=== PATIENT | female | born 1985 | race Caucasian/White ===

== ENCOUNTER 2016-10-25 08:27 | Emergency (ER) ==
[2016-10-25] MEDS ORDERED: ZOFRAN ODT PO ONE (08:52)
[2016-10-25] MEDS ORDERED: SODIUM CHLORIDE 0.9% INJ ONE (10:29)
[2016-10-25] MEDS ORDERED: NS 1,000 ML IV ONE (10:29)
[2016-10-25] MEDS ORDERED: PHENERGAN IV ONE (10:29)
--- NOTE | 2016-10-25 10:31 | PROVIDER DOCUMENTATION ---
HPI-General Adult - General Chief Complaint: General Adult Stated Complaint: FLU LIKE SX Time Seen by Provider: 10/25/16 08:52 Source: patient Allergies/Adverse Reactions: Patient Allergies Allergy/AdvReac Type Severity Reaction Status Date / Time Latex, Natural Rubber Allergy Mild HIVES Verified 07/04/16 13:14 Penicillins Allergy Mild HIVES Verified 07/04/16 13:14 Home Medications: Sertraline HCl [Zoloft] 200 mg PO DAILY 10/05/13 Folic Acid 1 mg PO DAILY 05/02/14 Methotrexate Sodium [Methotrexate] 1 tab PO DIRECTED 05/02/14 Pregabalin [Lyrica] 450 mg PO DAILY 05/02/14 Hydrocodone/Acetaminophen [Constantia 5-325 Tablet] 1 each PO BID 04/10/16 Etonogestrel [Nexplanon] 07/04/16 Levomefolate Calcium [Deplin] 1 tab PO DAILY 07/04/16 Meclizine [Antivert] 2 tab PO DAILY 07/04/16 Norethindrone Acetate [Aygestin] 1 tab PO DAILY 07/04/16 Omeprazole [Prilosec] 1 tab PO DAILY 07/04/16 Tizanidine HCl 1 tab PO BID 07/04/16 - History of Present Illness -Gen Adult Nature of Presenting Problems: Reports to er with cc of sorethroat x2 days with n,v,d. Reports was constipated before sunday. Takes pain medications. Hx of flesh eating ulcers. Reports feels dehydrated. Location of Pain/Injury: reports: mouth Quality of Pain: reports: aching Severity: reports: moderate Onset/Duration: reports: 2 days ago Timing: reports: still present Similar Symptoms Previously?: No Recently seen or treated by another doctor?: No Review of Systems - Adult - REVIEW OF SYSTEMS - ADULT Constitutional: denies: chills, fever, fatique Eyes: reports: no symptoms reported Ears, Nose, Mouth & Throat: reports: throat pain. denies: ear pain, sinus problem Cardiovascular: reports: no symptoms reported Respiratory: denies: cough, shortness of breath, wheezing Gastrointestinal: reports: diarrhea, nausea, poor appetite, vomiting. denies: abdominal pain, difficulty swallowing, frequent heartburn Genitourinary: reports: no symptoms reported Musculoskeletal: reports: no symptoms reported Integumentary: reports: no symptoms reported Neurological: reports: no symptoms reported Psychiatric: reports: no symptoms reported Endocrine: reports: no symptoms reported Hematologic/Lymphatic: reports: no symptoms reported Allergic/Immunologic: reports: no symptoms reported All Other Systems: Reviewed and Negative Past History - Adult - PAST MEDICAL HISTORY-ADULT Review of Records: reports: Nursing Assessment Review Major Childhood Illnesses: reports: denies history Cardiovascular: reports: denies history Respiratory: reports: denies history Gastrointestinal: reports: IBS Obstetrical/Gynecological: reports: ovarian cysts, other (PCOS) Genitourinary: reports: denies history Musculoskeletal: reports: denies history Neurological: reports: denies history Endocrine/Immune: reports: denies history Other Conditions: reports: denies history Additional History: Fibromyalgia - PRIOR SURGERIES/PROCEDURES Surgical/Procedure History: reports: other (breast reduction) - PRIOR HOSPITALIZATIONS Prior Hospitalizations: reports: none - IMMUNIZATION STATUS Childhood Immunizations: See Nurse Assessment Flu Vaccine: See Nurse Assessment - FAMILY HISTORY Family History: reviewed, not pertinent - SOCIAL HISTORY Smoking: denies Substance Use: none/never Physical Exam-General - PHYSICAL EXAM-ADULT Initial Vital Signs Reviewed: Yes - CONSTITUTIONAL General Appearance: appears well, alert, no apparent distress - EYES Eyes: PERRL/EOMI, pink conjunctivae - HEAD, EARS, NOSE, MOUTH & THROAT HENMT: normocephalic/atraumatic, normal ENT inspection, TMs normal, pharyngeal erythema (with white exudate). negative: moist mucous membranes - NECK Neck: non-tender, full range of motion, normal inspection - RESPIRATORY Respiratory: chest non-tender, lungs clear, normal breath sounds - CARDIOVASCULAR Cardiovascular: normal peripheral pulses, regular rate, rhythm, no edema - GASTROINTESTINAL (ABDOMEN) Abdominal Exam: normal bowel sounds, non tender, soft - LYMPHATIC Lymphatic: no adenopathy - MUSCULOSKELETAL Back Exam: normal inspection, no CVA tenderness, no vertebral tenderness Extremity: normal range of motion, non-tender, normal gait - SKIN Integumentary: normal color, normal turgor, warm/dry - NEUROLOGIC Neurologic: grossly normal, no motor/sensory deficits - PSYCHIATRIC Psych/Mental Status: normal mood/affect, normal thought content, normal thought process, oriented x 3 Progress - PLAN OF CARE/RESULTS Progress/Plan/Lab Results: Orders Category Date Time Status DIRECT STREP PL Stat Lab 10/25/16 08:47 Completed Flu [INFLUENZA SCREEN PL] Stat Lab 10/25/16 08:47 Completed Ondansetron Odt [Zofran Odt] Med 10/25/16 08:52 Discontinued 4 mg PO NOW ONE Vital Signs - 24 hr 10/25/16 08:47 Temperature 99.7 F H Pulse Rate 121 H Respiratory 18 Rate Blood Pressure 134/69 O2 Sat by Pulse 99 Oximetry Laboratory Tests 10/25/16 10/25/16 08:47 08:47 Influenza A (Rapid) NEGATIVE Influenza B (Rapid) NEGATIVE Group A Strep Rapid NEGATIVE Orders Category Date Time Status Saline Loc DIRECTED Care 10/25/16 10:29 Active Saline Loc NOW Care 10/25/16 10:29 Active NPO Diet 10/25/16 10:29 Active CHEST-PORTABLE [RAD] Stat Exams 10/25/16 11:44 Ordered RENAL STONE SEARCH [CT] Stat Exams 10/25/16 11:44 Ordered AMYLASE [CHEM] Stat Lab 10/25/16 10:45 Completed CBC WITH ELECTRONIC DIFF [HEME] Stat Lab 10/25/16 10:45 Completed COMPREHENSIVE METABOLIC PANEL [CHEM] Stat Lab 10/25/16 10:[address] Stat Lab 10/25/16 08:47 Completed Flu [INFLUENZA SCREEN PL] Stat Lab 10/25/16 08:47 Completed LIPASE [CHEM] Stat Lab 10/25/16 10:45 Completed MAGNESIUM [CHEM] Stat Lab 10/25/16 10:45 Completed TEST-URINE [PREG] Stat Lab 10/25/16 11:[address] W/POSS RFLX CULT [URINALYSIS] Stat Lab 10/25/16 11:38 Results URINE DRUG SCREEN PL Stat Lab 10/25/16 10:29 Uncollected 0.9% Sodium Chloride Inj [Ns] 1,000 ml Med 10/25/16 10:29 Discontinued IV 999 mls/hr Ondansetron Odt [Zofran Odt] Med 10/25/16 08:52 Discontinued 4 mg PO NOW ONE Promethazine [Phenergan] Med 10/25/16 10:29 Discontinued 25 mg IV NOW ONE Sodium Chloride 0.9% Med 10/25/16 10:29 Discontinued 10 ml INJ NOW ONE Laboratory Tests 10/25/16 10/25/16 10/25/16 08:47 08:47 10:45 WBC RBC Hgb Hct MCV MCH MCHC RDW Std Deviation Plt Count MPV Immature Gran % (Auto) Neut % (Auto) Lymph % (Auto) [place] % (Auto) Eos % (Auto) Baso % (Auto) Immature Gran # (Auto) Neut # (Auto) Lymph # (Auto) [place] # (Auto) Eos # (Auto) Baso # (Auto) Sodium 138 Potassium 4.3 Chloride 104 Carbon Dioxide 21 L Anion Gap 13 BUN 12 Creatinine 1.3 H Estimated GFR/1.73 m2 48 BUN/Creatinine Ratio 9 Glucose 113 H Calculated Osmolality 276 Calcium 9.8 Magnesium 1.8 Total Bilirubin 1.00 AST 21 ALT 29 Alkaline Phosphatase 101 Total Protein 7.4 Albumin 4.3 Globulin 3.0 Albumin/Globulin Ratio 1.0 Amylase 35 Lipase 29 Urine Source Influenza A (Rapid) NEGATIVE Influenza B (Rapid) NEGATIVE Group A Strep Rapid NEGATIVE 10/25/16 10/25/16 10:45 11:38 WBC 16.56 H RBC 5.48 H Hgb 13.2 Hct 41.2 MCV 75.2 L MCH 24.1 L MCHC 32.0 L RDW Std Deviation 15.4 H Plt Count 246 MPV 11.7 H Immature Gran % (Auto) 0.2 Neut % (Auto) 86.0 H Lymph % (Auto) 7.2 L [place] % (Auto) 6.0 Eos % (Auto) 0.4 Baso % (Auto) 0.2 Immature Gran # (Auto) 0.03 Neut # (Auto) 14.23 H Lymph # (Auto) 1.20 [place] # (Auto) 1.00 H Eos # (Auto) 0.06 Baso # (Auto) 0.04 Sodium Potassium Chloride Carbon Dioxide Anion Gap BUN Creatinine Estimated GFR/1.73 m2 BUN/Creatinine Ratio Glucose Calculated Osmolality Calcium Magnesium Total Bilirubin AST ALT Alkaline Phosphatase Total Protein Albumin Globulin Albumin/Globulin Ratio Amylase Lipase Urine Source CLEAN CATCH Influenza A (Rapid) Influenza B (Rapid) Group A Strep Rapid - CT/MRI 1 CT Study: Renal Stone Impression: Abnormal CT Results: mild constipation; spleenomegaly Departure - Departure Time of Disposition Order: 13:04 DIAGNOSIS: Dehydration, Tachycardia UTI (urinary tract infection) Qualifiers: Urinary tract infection type: site unspecified Hematuria presence: without hematuria Qualified Code(s): N39.0 - Urinary tract infection, site not specified Pharyngitis Qualifiers: Pharyngitis/tonsillitis etiology: unspecified etiology Qualified Code(s): J02.9 - Acute pharyngitis, unspecified Disposition: HOME 01 Certified Medical Emergency: Emergent Condition: Stable Additional Instructions: ED Follow Up Instructions: You have been treated by a care provider in the Emergency Department. These instructions are being provided to you so you can have an understanding of how to care for yourself upon discharge. Upon discharge from the Emergency Department, you are responsible for making arrangements for follow-up care by a physician of your choice. Take all prescribed medications as directed. Return to the Emergency Department immediately for any new or worsening symptoms. You may call the Physician Referral phone number at [phone] to obtain a list of Physicians who are taking new patients. Attestation - Scribe Verification/Attestation Scribe:: Hema Gould Acting as Scribe for:: Nidia Marie Scribe documention review:: This chart was documented by a scribe and accurately reflects the service the provider performed and the decisions made by the provider.
[2016-10-25 10:52] LABS: MANUAL DIFF NEEDED? NO
[2016-10-25 11:24] LABS: ALBUMIN 4.3 g/dL (3.5-5.0); BASO% 0.2 % (0.0-0.8); CALCIUM 9.8 mg/dL (8.8-10.2); EOS# 0.06 X1000 (0.0-0.7); EOS% 0.4 % (0.0-10.0); IMM GRAN# 0.03 X1000 (0.0-0.04); IMM GRAN% 0.2 % (0.0-0.5); MAGNESIUM 1.8 mg/dL (1.5-2.7); POTASSIUM 4.3 mmol/L (3.5-5.1); TOTAL PROTEIN 7.4 g/dL (6.3-8.3)
[2016-10-25 11:47] LABS: URINE SOURCE CLEAN CATCH
[2016-10-25 11:56] LABS: HEMATOCRIT 40.7 % (37.0-47.0); HEMOGLOBIN 13.3 g/dL (12.0-16.0); LYMPH# 1.15 X1000 (1.2-3.4); MCH 24.5 PG (27-31); MCHC 32.7 g/dL (33-37); MCV 75.1 FL (81-99); MONO# 0.96 X1000 (0.11-0.59); MONO% 5.8 % (1.7-9.3); MPV 12.1 FL (7.4-10.4); NEUT% 86.4 % (42.2-75.2); PLT 244 X1000 (130-400); RBC 5.42 XMIL (4.2-5.4)
[2016-10-25 12:06] LABS: BILIRUBIN URINE NEGATIVE (NEGATIVE); BLOOD URINE 1+ (NEGATIVE); CLARITY SL. CLOUDY (CLEAR); COLOR YELLOW; GLUCOSE URINE NEGATIVE (NEGATIVE); LEUKOCYTES URINE 2+ (NEGATIVE); NITRITE URINE NEGATIVE (NEGATIVE); PROTEIN URINE NEGATIVE (NEGATIVE); UROBILINOGEN URINE NORMAL
[2016-10-25 12:07] LABS: URINE CULTURE PL NEEDED? YES; URINE EPITHELIAL CELLS >10 /HPF (<10); URINE WBC 20-40 /HPF (<10)
[2016-10-25 12:20] LABS: UR AMPHETAMINES QUAL NONE DETECTED (NONE DETECT); UR BARBITUATES QUAL NONE DETECTED (NONE DETECT); UR BENZODIAZEPIN QUAL NONE DETECTED (NONE DETECT); UR CANNABINOIDS QUAL NONE DETECTED (NONE DETECT); UR COCAINE QUAL NONE DETECTED (NONE DETECT); UR MDMA QUAL NONE DETECTED (NONE DETECT); UR METHADONE QUAL NONE DETECTED (NONE DETECT); UR METHAMPHETAMINE QUAL NONE DETECTED (NONE DETECT); UR OPIATES QUAL PRESUMPTIVE POSITIVE (NONE DETECT); UR OXYCODONE QUAL NONE DETECTED (NONE DETECT); UR PCP QUAL NONE DETECTED (NONE DETECT); UR TCA QUAL NONE DETECTED (NONE DETECT)
--- NOTE | 2016-10-25 12:53 | Diag Imaging Result Document ---
PROCEDURE NAME: RENAL STONE SEARCH - 10/25/2016 CT UROGRAM WITHOUT CONTRAST: FINDINGS: There is no evidence of nephrolithiasis. The spleen is enlarged measuring over 15 cm in AP diameter. There are no previous studies. There is no evidence of hydronephrosis or ureterolithiasis. There are a number of phleboliths in the pelvis. There is some stool throughout the colon. IMPRESSION: 1. Mild constipation. 2. Splenomegaly.
[2016-10-25] MEDS ORDERED: MACROBID PO ONE (13:03)
[2016-10-25] MEDS ORDERED: ZITHROMAX PO ONE (13:07)
--- NOTE | 2016-10-25 13:08 | Diag Imaging Result Document ---
PROCEDURE NAME: CHEST-1 VIEW - 10/25/2016 PA CHEST: FINDINGS: There is no evidence of acute cardiac or pulmonary disease. There are calcified nodes in the tom bilaterally. Compared to 04/10/2016, there has been no significant change. IMPRESSION: No acute disease.
[2016-10-25 13:37] VITALS: BP 114/77
== END 2016-10-25 13:36 | disposition home or self-care (01) ==
LOC: P.ED 08:27
DX: N39.0 Urinary tract infection, site not specified (principal); E86.0 Dehydration; R00.0 Tachycardia, unspecified; J02.9 Acute pharyngitis, unspecified; K59.00 Constipation, unspecified; R16.1 Splenomegaly, not elsewhere classified; R11.2 Nausea with vomiting, unspecified; R19.7 Diarrhea, unspecified; M79.7 Fibromyalgia; Z79.899 Other long term (current) drug therapy; Z87.42 Personal history of other diseases of the female genital tract
CPT/HCPCS: 71010; 74176; 80053; 81001; 81025; 82150; 83690; 83735; 85025; 87081; 87088; 87430; 87804; 96360; 96361; 96372; J2550; J7030

== ENCOUNTER 2016-12-05 14:35 | Inpatient (IN) ==
[2016-12-05] MEDS ORDERED: ZOFRAN IV PRN (19:29)
[2016-12-05] MEDS ORDERED: NS 500 ML IV ONE (19:29)
[2016-12-05 20:54] LABS: BASO% 0.4 % (0.0-0.8); EOS# 0.14 X1000 (0.0-0.7); EOS% 1.7 % (0.0-10.0); HEMATOCRIT 41.3 % (37.0-47.0); HEMOGLOBIN 13.9 g/dL (12.0-16.0); LYMPH# 2.29 X1000 (1.2-3.4); LYMPH% 27.7 % (20.5-51.1); MANUAL DIFF NEEDED? NO; MCH 25.1 PG (27-31); MCHC 33.7 g/dL (33-37); MCV 74.5 FL (81-99); MONO# 0.67 X1000 (0.11-0.59); MONO% 8.1 % (1.7-9.3); MPV 12.2 FL (7.4-10.4); NEUT% 62.1 % (42.2-75.2); PLT 286 X1000 (130-400); RBC 5.54 XMIL (4.2-5.4)
[2016-12-05 21:15] LABS: ALBUMIN 3.8 g/dL (3.5-5.0); CALCIUM 9.3 mg/dL (8.8-10.2); MAGNESIUM 2.2 mg/dL (1.5-2.7); TOTAL BILIRUBIN 0.83 mg/dL (0.20-1.00); TOTAL PROTEIN 7.5 g/dL (6.3-8.3)
[2016-12-05] MEDS: SEPTRA DS PO SCH (21:34)
[2016-12-05] MEDS: COREG PO SCH (21:34)
[2016-12-05] MEDS: NORCO-5 PO SCH (21:34)
[2016-12-05] MEDS: LYRICA PO SCH (21:34)
[2016-12-05] MEDS: ZANAFLEX PO SCH (21:35)
[2016-12-05 22:26] LABS: URINE MICRO REVIEW NEEDED? NO; URINE SOURCE CLEAN CATCH
[2016-12-05] MEDS: NS 1,000 ML IV SCH (22:27)
[2016-12-05 22:30] LABS: BILIRUBIN URINE NEGATIVE (NEGATIVE); BLOOD URINE NEGATIVE (NEGATIVE); COLOR YELLOW; GLUCOSE URINE NEGATIVE (NEGATIVE); LEUKOCYTES URINE MODERATE (NEGATIVE); NITRITE URINE NEGATIVE (NEGATIVE); PROTEIN URINE 30 mg/dL (NEGATIVE); SP GRAVITY URINE 1.029; TURBIDITY URINE CLEAR (CLEAR); UR EPITHELIAL CELLS <10 /HPF (<10); URINE BACTERIA 1+ /HPF; URINE CULTURE NEEDED? YES; URINE RBC <10 /HPF (<10); UROBILINOGEN URINE 2 mg/dL (NORMAL)
[2016-12-06] MEDS: PHENERGAN IV PRN ×2 (05:54→21:57)
[2016-12-06] MEDS: SODIUM CHLORIDE 0.9% INJ PRN ×2 (05:54→21:57)
[2016-12-06] MEDS: PRILOSEC PO SCH ×2 (05:55→06:47)
[2016-12-06 06:10] LABS: MANUAL DIFF NEEDED? NO
--- NOTE | 2016-12-06 06:24 | Diag Imaging Result Document ---
PROCEDURE NAME: ABDOMEN/PELVIS W/WO CONTRAST - 12/05/2016 CT ABDOMEN AND PELVIS WITH AND WITHOUT INTRAVENOUS CONTRAST: COMPARISON: Compared to 10/25/2016. FINDINGS: Noncontrasted images performed. No renal stones. No hydronephrosis. No bowel obstruction. Post contrasted images performed. The spleen is mildly prominent measuring 14.9 cm. No focal hepatic abnormality. The gallbladder is contracted. No inflammation about the pancreas. Normal adrenal glands. Normal enhancement of the kidneys. Normal aorta. No inflammation about the appendix. No abscess. The urinary bladder is mildly distended and appears normal. Normal uterus and ovaries. No free fluid within the pelvis. IMPRESSION: 1. Mild splenomegaly. 2. No renal stones or hydronephrosis. 3. No bowel obstruction. Normal appendix. A preliminary report was given at 1:12 a.m.
[2016-12-06 06:37] LABS: ALBUMIN 3.9 g/dL (3.5-5.0); CALCIUM 9.1 mg/dL (8.8-10.2); MAGNESIUM 2.1 mg/dL (1.5-2.7); POTASSIUM 4.1 mmol/L (3.5-5.1); TOTAL BILIRUBIN 0.82 mg/dL (0.20-1.00); TOTAL PROTEIN 6.9 g/dL (6.3-8.3)
[2016-12-06] MEDS: NS 1,000 ML IV SCH ×4 (06:47→21:58)
[2016-12-06 06:48] LABS: BASO% 0.4 % (0.0-0.8); HEMATOCRIT 38.2 % (37.0-47.0); HEMOGLOBIN 12.7 g/dL (12.0-16.0); LYMPH# 1.85 X1000 (1.2-3.4); LYMPH% 37.4 % (20.5-51.1); MCH 25.1 PG (27-31); MCHC 33.2 g/dL (33-37); MCV 75.5 FL (81-99); MONO# 0.47 X1000 (0.11-0.59); MONO% 9.5 % (1.7-9.3); MPV 11.9 FL (7.4-10.4); NEUT% 50.7 % (42.2-75.2); PLT 237 X1000 (130-400); RBC 5.06 XMIL (4.2-5.4)
[2016-12-06] MEDS: NORCO-5 PO SCH ×4 (07:00→21:57)
[2016-12-06] MEDS ORDERED: CORTROSYN IV ONE (07:30)
[2016-12-06] MEDS: SEPTRA DS PO SCH ×2 (08:28→21:58)
[2016-12-06] MEDS: PROZAC PO SCH (08:28)
[2016-12-06] MEDS: COREG PO SCH ×2 (08:28→21:57)
[2016-12-06] MEDS: ZANAFLEX PO SCH ×2 (08:28→21:58)
[2016-12-06] MEDS: LYRICA PO SCH ×2 (08:37→22:03)
--- NOTE | 2016-12-06 10:20 | PROGRESS NOTE ---
DATE: 12/06/2016 PRIMARY CARE PHYSICIAN: Dr. Onel Chiang SUBJECTIVE: Overnight, the patient was admitted late. Medications were reconciled. No acute issues. Patient did require some Phenergan overnight for nausea that was deemed to be acute and easily relieved. Patient is amenable to the tests that are being performed today and we will follow status post the results. OBJECTIVE: Vital Signs: Temperature 98 degrees, pulse 85, respirations 20, blood pressure 120/73 and O2 saturation 98% on room air.General: On physical exam, obese morbidly white female in no apparent distress. Call light within reach. CV: Regular rate. No murmurs, gallops, or rubs. Abdomen: Obese and protuberant. Bowel sounds are scant but present. Lungs: Decreased breath sounds at the bilateral bases, but no rhonchi and no wheeze. Extremities: Lower extremities with edema and scarring from the pyoderma gangrenosum, but otherwise within normal limits. Patient's urine output and input is approximately balanced. Will continue to monitor as more data becomes available. LABORATORY: WBC 4.95 with a hemoglobin and hematocrit of 12 and 38. MCV low at 75.5, platelet count 237,000. Slight monocytosis. Chemistry shows sodium 137, CO2 22, creatinine stable at 1.3. Magnesium level was within normal. AST and ALT normal. Urine protein 30. Urobilinogen 2+ with moderate leukocytes. The urine test negative, and urine bacteria 1+ despite the medications provided. Abdominal pelvis CT shows mild splenomegaly. No renal stones or hydronephrosis. No bowel obstruction. Normal appendix. Microbiology: Urine culture is pending. Blood culture x2 pending as well. ASSESSMENT AND PLAN: A 31-year-old obese white female with the following. 1. Adrenal insufficiency. 2. Chronic UTI despite treatment. 3. Proteinuria. 4. Nausea and vomiting. 5. KATHLEEN secondary to dehydration. Today, cortisone stim test is being performed. We will follow the results of that and labs that have been drawn today. Consideration for consultation regarding some of the immune issues will be performed status post this evaluation. We will continue to follow the results of the Ran stim test and treat as appropriate. Continue current medication regarding chronic pain and the pyoderma gangrenosum. Watch for any new lesions that appear.
--- NOTE | 2016-12-06 15:40 | HISTORY AND PHYSICAL ---
PRIMARY CARE PHYSICIAN: Dr. Onel Chiang. CHIEF COMPLAINT: Fatigue. Chronic urinary tract infection refractory to outpatient medications. HISTORY OF PRESENT ILLNESS: Ms. Edwards is a 31-year-old, white female with a pyoderma gangrenosum that presented multiple times to our office for UTI with fatigue nonresponsive to outpatient antibiotics. The patient became listless and had poor p.o. intake and it was decided to direct admit to the hospital for further evaluation of adrenal issues alongside urologic followup for this chronic UTI nonresponsive. Active problems include: 1. Polycystic ovary syndrome. 2. Pyoderma gangrenosum. 3. Chronic frequent UTIs. 4. Fibromyalgia. 5. Depression and anxiety. 6. Near-syncope. 7. Insomnia. 8. Borderline IgG deficiency. 9. Possible adrenal insufficiency. SURGERIES: Patient had Nexplanon 06/17/2016. Breast reduction 2001. Multiple surgeries in the skin 2013 secondary to pyoderma gangrenosa. MEDICATIONS: Tizanidine 2 mg 1 tablet p.o. b.i.d. Lyrica 150 mg p.o. t.i.d. [place] 325/5 1 per orally q.4 hours. Prilosec 40 mg 1 tablet p.o. daily. Folic acid 1 tablet p.o. daily. Vitamin D3 2000 units daily. Prozac 40 mg daily. Coreg 3.1 25 1 tablet p.o. b.i.d. Wellbutrin 100 mg q.12 hours. Bactrim 800/160 twice daily. ALLERGIES: Latex and penicillin. FAMILY HISTORY: Noncontributory. Multiple family members with diabetes mellitus. SOCIAL HISTORY: Currently living with and 2 children. Recently . Prior work as secretarial aid, currently moving toward disability. REVIEW OF SYSTEMS: 12-point review of systems. Pertinent for items mentioned in HPI. Patient denies weight changing, weakness, fevers, vision changes, hearing changes, neck pain, cough, dyspnea, palpitations, chest pain. The patient does describe dysuria, urine frequency, urine hesitancy, urine urgency. PHYSICAL EXAMINATION: VITAL SIGNS: Temperature 98.5 degrees, pulse is 98, respirations 16, blood pressure 141/83, O2 saturation 97% on room air. GENERAL: Morbidly obese, white female, in no acute distress. CARDIOVASCULAR: Regular rate. No murmurs, gallops, rubs. CHEST: Shows no rhonchi and no wheeze. Clear to auscultation anteriorly. ABDOMEN: Protuberant, bowel sounds are positive. No tenderness to palpation. No guarding. No rebound. NEUROLOGICAL: Cranial nerves 2-12 are grossly intact. No issues or problems otherwise neurologically. SKIN: Does show multiple scarring from the pyoderma gangrenosum. LABORATORY: WBC is 4.95 with an hemoglobin and hematocrit of 12 and 38 respectively. Platelet count of 237,000, neutrophils at 50.70. Chemistry shows sodium 137, chloride 101, carbon dioxide 2.2. Creatinine 1.3 with baseline within normal limits. Calcium 9.1. TSH 1.6. The patient has had a cortisol that shows initial 6.2, with a 30 and a 22 minute of 19 and 22 respectively. UA shows 30 protein, 2+ urobilinogen, moderate leukocytes, 10-20 WBCs, greater than 10 Red blood cells, +1 bacteria. Urine test is negative. IMAGING: Abdomen and pelvis performed 12/05/2015 is primarily within normal limits. Mild splenomegaly. No stones or hydronephrosis. No bowel obstruction. ASSESSMENT: A 31-year-old, white female being admitted for further evaluation of adrenal insufficiency along with chronic urinary tract infection, failing outpatient treatment. Problem list includes: 1. Dehydration. 2. Urinary tract infection, recurrent and frequent. 3. Persistent proteinuria. 4. Acute kidney injury. PLAN: We will admit patient to general medical floor and evaluate with testing, along with consult Urology for further evaluation and place 24 hour urine to evaluate for chronic condition and see if we can ameliorate them while in the hospital. We will follow daily and with Urology regarding issues or concerns. Continue the antibiotics as written and follow as outpatient once we have completed all of the requested interventions.
--- NOTE | 2016-12-06 18:18 | CONSULTATION ---
DATE OF CONSULTATION: 12/06/2016 CONCLUSION: The patient is getting either a chronic urinary tract infection or recurrent urinary tract infections. This has been going on for close to 8 months. She does have dysuria when she has a urinary tract infection, as well as urinary frequency, but she does not have fever or shaking chills. The patient's CBC today shows a white count of 4950, hemoglobin 12.7, and platelet count 237,000. Creatinine is 1.3. GFR is 40. Liver function studies are normal. A CT scan of the abdomen and pelvis showed mild splenomegaly. RECOMMENDATION: I am waiting for the patient's urine culture to come back. I have ordered a postvoid residual urine by bladder scan. The patient's test was negative. Urinalysis showed white cells and bacteria. CBC showed a white count of 4950, hemoglobin 12.7, and platelet count 237,000. Creatinine is 1.3. GFR is 48. Liver function studies are normal. PAST MEDICAL HISTORY/REVIEW OF SYSTEMS: Eyes and Ears: She denies difficulty hearing or seeing. Neck: No stiffness. Respiratory: No cough or shortness of breath. Cardiovascular: No chest pain or palpitations. GI: The patient does have diarrhea alternating with constipation, which she calls irritable bowel syndrome. Patient also has been having nausea. [employer] HISTORY: She is a 1, para 0, AB 1. PREVIOUS HOSPITALIZATIONS AND OPERATIONS: The patient has had a miscarriage. She also has had breast reduction and skin surgeries and had Nexplanon. MEDICAL DISEASES: Positive for obesity and pyoderma gangrenosum. INFECTIOUS DISEASE HISTORY: Positive for pneumonia and UTI. FAMILY HISTORY: Positive for diabetes mellitus and cancer. SOCIAL HISTORY: [place] She does not smoke cigarettes or drink alcoholic beverages. She does not use illegal drugs. ALLERGIES: She has an allergy to penicillin identified by a rash which appeared approximately 20 years ago. She is also allergic to latex. She is and she has dogs for pets. MEDICATIONS AT HOME: The medications at home include the following: Tizanidine, Lyrica, Omeprazole, Septra, carvedilol, Prozac and hydrocodone. PHYSICAL EXAMINATION: Vital Signs: Temperature is 98.5 degrees, pulse 98, respirations 16, blood pressure 141/83. General: This is an obese, but otherwise healthy-appearing, young female who is in no acute distress. Head, eyes, ears, nose, and throat: She can hear my spoken words and see near objects. No drainage noted from the nose or ears. Neck: No meningismus. Thorax: No increased AP diameter to the chest. Lungs: Clear to auscultation. Cardiovascular: Heart rate is regular. Abdomen: Soft and nontender. Both flanks are soft and nontender as well. Neurologic: Patient is awake. She can move her extremities. There is no tremor. Patient's memory as regarding her medical history is intact. Thank you for the consult.
--- NOTE | 2016-12-06 20:20 | CONSULTATION ---
DATE OF CONSULTATION: 12/06/2016 ATTENDING AND REFERRING PHYSICIAN: Dr. Onel Chiang. HISTORY OF PRESENT ILLNESS: This 31-year-old female was admitted for evaluation of adrenal insufficiency and chronic urinary tract infection. The patient states that for the last 8 months she feels like she has had a constant urinary infection with increased frequency , urgency, dysuria and pelvic pains. She states that she has had multiple antibiotics and she always has the same symptoms. She states she may get better for a little while, but then she starts having problems. She denies any history of urologic surgery. She states this has never been evaluated before. She has no history of kidney stones or gross hematuria. The patient states she does have a history of migraine headaches, irritable bowel syndrome and fibromyalgia. The patient was seen at [facility] for pyoderma gangrenosum and was told she had pelvic dysfunction. PAST MEDICAL HISTORY: Polycystic ovarian syndrome, pyoderma gangrenosum, depression, gastroesophageal reflux disease. CURRENT MEDICATIONS: Documented on the chart. PAST SURGICAL HISTORY: Breast reduction. Multiple skin surgeries. She has had a miscarriage. SOCIAL HISTORY: No tobacco or alcohol use. ALLERGIES: She is allergic to latex and penicillin. REVIEW OF SYSTEMS: She denies problems with diabetes, strokes, seizures or recent pulmonary problems. PHYSICAL EXAMINATION: General: An obese, age-apparent, normally developed, white female, oriented in all ways and cooperative. HEENT: Normal for age. Lungs: Clear. Cardiovascular: Regular rate and rhythm. Abdomen: Obese soft, nontender. No hepatosplenomegaly or masses. Genitourinary: Deferred until surgery. Extremities: No clubbing, cyanosis, or edema. Neurologic: No focal deficits. LABORATORY EVALUATION: White count of 4.95, hemoglobin 12.7, hematocrit 38.2 and platelets are 237,000. Serum electrolytes are normal. BUN 12, creatinine 1.3. DIAGNOSTICS: CT urogram reveals normal kidneys bilaterally. IMPRESSION: Patient with history of migraine headaches, irritable bowel syndrome and fibromyalgia with chronic irritative voiding symptoms and pelvic pains. Recommend: Cystoscopic exam and bilateral retrograde ureteral pyelograms to ensure there are no anatomic abnormalities of the urinary system. The planned procedure, benefits versus risks, possible complications, including, but not limited to, bleeding, infection, finding abnormalities with need for further treatment, not finding any abnormalities was discussed. She seems to understand and desires to proceed. Obtain a catheterized urine for urinalysis, culture and sensitivity. Discussed with patient interstitial cystitis which is chronic irritative voiding symptoms with pelvic pain. I discussed that it is highly associated with migraine headaches, irritable bowel syndrome and fibromyalgia. Discussed there is no cure for this. She can just control her symptoms. She was given a list of food and drink that have been known to trigger irritative voiding and pelvic pain in other patients with interstitial cystitis. Thank you for this consultation. UNRULY
[2016-12-06 23:19] LABS: URINE SOURCE CATH
[2016-12-07 03:42] LABS: BILIRUBIN URINE NEGATIVE (NEGATIVE); BLOOD URINE NEGATIVE (NEGATIVE); CLARITY CLEAR (CLEAR); COLOR YELLOW; GLUCOSE URINE NEGATIVE (NEGATIVE); LEUKOCYTES URINE TRACE (NEGATIVE); NITRITE URINE NEGATIVE (NEGATIVE); PROTEIN URINE NEGATIVE (NEGATIVE); SP GRAVITY URINE >= 1.030; UROBILINOGEN URINE 0.2 EU/dL (0.2-1.0)
[2016-12-07 03:43] LABS: URINE EPITHELIAL CELLS >10 /HPF (<10); URINE RBC <10 /HPF (<10); URINE WBC TNTC /HPF (<10)
[2016-12-07] MEDS: NS 1,000 ML IV SCH ×2 (05:13→13:59)
[2016-12-07] MEDS: SODIUM CHLORIDE 0.9% INJ PRN (05:33)
[2016-12-07] MEDS: PHENERGAN IV PRN (05:33)
--- NOTE | 2016-12-07 06:56 | PROGRESS NOTE ---
DATE: 12/07/2016 PRESENT ILLNESS: The patient is having either recurrent or chronic urinary tract infections. MEDICATIONS: Currently, she is on Septra. We are waiting the final result of her urine and blood cultures. PHYSICAL EXAMINATION: Vital Signs: Temperature is 98.5 degrees, pulse 86, respirations 16 and blood pressure 115/68. General: This is an obese, but otherwise healthy-appearing, young female. She is in no acute distress. Lungs: Clear to auscultation. Cardiovascular: Regular heart rate. Abdomen: The abdomen and flank soft and nontender. Neurologic: The patient was sleeping. She awoke. She is conversant and can move her extremities. There is no tremor. LABORATORY AND X-RAY: The patient had a bladder scan for postvoid residual urine and it showed only 49 mL of urine. The patient had a CAT scan which showed no blockage in the genitourinary tract and also there was no abscess present. ASSESSMENT AND PLAN: For right now, I am waiting for the results of the urine culture. The patient already is on Septra. Patient's comorbidities is actually difficult for me to say. 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
[2016-12-07 06:59] LABS: MANUAL DIFF NEEDED? NO
[2016-12-07] MEDS: NORCO-5 PO SCH ×4 (07:00→22:11)
[2016-12-07 07:06] LABS: BASO% 0.4 % (0.0-0.8); EOS% 1.8 % (0.0-10.0); HEMATOCRIT 37.3 % (37.0-47.0); HEMOGLOBIN 12.4 g/dL (12.0-16.0); LYMPH# 1.95 X1000 (1.2-3.4); LYMPH% 35.3 % (20.5-51.1); MCH 25.3 PG (27-31); MCHC 33.2 g/dL (33-37); MONO# 0.55 X1000 (0.11-0.59); MONO% 9.9 % (1.7-9.3); MPV 11.8 FL (7.4-10.4); NEUT% 52.6 % (42.2-75.2); PLT 234 X1000 (130-400); RBC 4.91 XMIL (4.2-5.4)
[2016-12-07 07:16] LABS: HEMOGLOBIN A1C 4.8 % (4.8-6.0)
[2016-12-07 07:41] LABS: ALBUMIN 3.7 g/dL (3.5-5.0); CALCIUM 8.7 mg/dL (8.8-10.2); MAGNESIUM 2.2 mg/dL (1.5-2.7); POTASSIUM 4.3 mmol/L (3.5-5.1); TOTAL BILIRUBIN 0.55 mg/dL (0.20-1.00); TOTAL PROTEIN 6.6 g/dL (6.3-8.3)
[2016-12-07] MEDS: SEPTRA DS PO SCH ×2 (09:00→21:18)
[2016-12-07] MEDS: ZANAFLEX PO SCH ×2 (09:00→21:18)
[2016-12-07] MEDS ORDERED: NEOSPORIN G.U. IRRIGANT ONE (09:01)
[2016-12-07] MEDS ORDERED: KEFZOL 2 GM/D5W 50 ML ONE (09:11)
[2016-12-07] MEDS ORDERED: CLAVE SECONDARY SET 11953 ONE (09:11)
[2016-12-07] MEDS: COREG PO SCH ×3 (10:06→21:18)
[2016-12-07] MEDS: PRILOSEC PO SCH (10:06)
[2016-12-07] MEDS: PROZAC PO SCH (10:06)
[2016-12-07] MEDS: LYRICA PO SCH ×3 (10:06→21:18)
--- NOTE | 2016-12-07 10:56 | Diag Imaging Result Document ---
PROCEDURE NAME: RETROGRADES 2 OR 3 FILMS - 12/07/2016 RETROGRADE PYELOGRAM 30 IMAGES: FINDINGS: There is retained contrast medium in the colon. Retrograde injection of the left ureter demonstrates no evidence of obstruction or fixed intraluminal filling defect. Injection of the right ureter is also without evidence of obstruction or mucosal lesion. Both sides appear to drain appropriately. IMPRESSION: No evidence of obstructing lesion or fixed intraluminal filling defect.
[2016-12-07] MEDS ORDERED: DIPRIVAN 1% ONE (11:21)
[2016-12-07] MEDS ORDERED: XYLOCAINE-MPF 2% ONE (11:49)
[2016-12-07] MEDS ORDERED: DECADRON ONE (11:49)
[2016-12-07] MEDS ORDERED: ZOFRAN ONE (11:49)
--- NOTE | 2016-12-07 12:39 | OPERATIVE NOTE ---
PROCEDURE DATE: 12/07/2016 SURGEON: Darren Browne MD POSTOPERATIVE DIAGNOSES: 1. Irritative voiding symptoms. 2. Pelvic pain. 3. History of being treated for recurrent urinary infections. POSTOPERATIVE DIAGNOSES: 1. Irritative voiding symptoms. 2. Pelvic pain. 3. History of being treated for recurrent urinary infections. PROCEDURE PERFORMED: 1. Cystoscopic exam. 2. Bilateral retrograde ureteral pyelograms. 3. Bladder washing for cytology. ANESTHESIA: General via laryngeal mask. FINDINGS: Cystoscopic exam: Urethra-greater than 21-Jordanian, without stricture. Bladder-normal ureteral orifices bilaterally. No papillary lesions or trabeculations. No diverticula. Left retrograde ureteral pyelogram normal without filling defect. Right retrograde ureteral pyelogram normal without filling defect. exam normal external female. No adnexal masses. Palpably normal bladder, cervix, and uterus. INDICATION FOR PROCEDURE: This 31-year-old female with long history of irritative voiding, pelvic pain, and being treated for recurrent urinary tract infections was admitted for treatment of urinary tract infection and evaluation of adrenal insufficiency. DESCRIPTION OF PROCEDURE: After informed consent was obtained from the patient, her receiving IV antibiotics, she was taken the main OR cystoscopy room placed in supine position. General anesthesia via laryngeal mask was achieved. She was then placed in the low lithotomy position, prepped and draped in the usual sterile fashion for cystoscopic exam. A 21-Jordanian sheath cystoscope was passed through the patient's urethra and into the bladder with findings as noted above. After the cystoscopic exam was performed, her bladder was irrigated and the irrigant was sent to Pathology for cytological analysis. An 8-Jordanian cone-tipped catheter was then passed through the cystoscope, engaged the left ureteral orifice, contrast was injected. Right side was accomplished similarly. Again, the bilateral retrograde ureteral pyelograms were normal without filling defects on either side. The bladder was drained. Cystoscope was removed. exam was performed. She tolerated the procedure well. ESTIMATED BLOOD LOSS: 0. DISPOSITION: She was taken to recovery room in good condition.
[2016-12-07] MEDS ORDERED: MORPHINE IV PRN ×2 (12:54→15:51)
--- NOTE | 2016-12-07 16:13 | PROGRESS NOTE ---
DATE: 12/07/2016 PCP: Dr. Onel Chiang. SUBJECTIVE: Patient is currently being consulted by Dr. Tommie Gonzalez and Dr. Darren Browne regarding their specialty. Overnight, minimal issues or concerns. Patient did complain of nausea unrelieved by current medications and some pain medication discrepancies. VITAL SIGNS: Temperature 100.8 degrees, pulse 112, blood pressure 137/84, O2 saturation 94% on room air. I's and O's without strict measurements shows no recorded output. Patient still having increased incontinence voids and 100% of meals consumed. PHYSICAL EXAM: Shows a morbidly obese white female lying supine in the bed slightly plethoric.CV: Shows regular rhythm. No murmurs, gallops, rubs. Chest: Clear to auscultation anteriorly in upper lobes only. Bilateral lower lobes are difficult to assess secondary to patient's habitus. Abdomen: Shows a protuberant abdomen. Abdomen with bowel sounds positive x4 quadrants. There is no suprapubic tenderness. No CVA tenderness noted. Lower Extremities: Show 2+ edema nonpitting. Neurological: Cranial nerves 2-12 are grossly intact. Psych: Appropriate mood and affect based on prior exams. LABORATORY FINDINGS: Demonstrate a WBC of 5.53 with an hemoglobin and hematocrit of 12 and 34 respectively, MCV of 76, platelets of 234,000. No immature granulocytes. Chemistry shows sodium 137, CO2 of 19, creatinine 1.1 down to 1.3, glucose of 105 with an A1c of 4.8, calcium 8.7. Repeat urinalysis shows urine epithelial cells greater than 10, 3+ bacteria despite antibiotics. Microbiology. Urine cultures and blood cultures still pending with no growth to date. Dr. Tommie Gonzalez regarding infectious disease. Continuing Septra with no changes. Regarding Dr. Browne, results of cystoscopy are being evaluated. Further information in a.m. WORKING DIAGNOSIS: At this time is interstitial cystitis. ASSESSMENT AND PLAN: A 31-year-old morbidly obese white female with. 1. Recurrent urinary tract infection. 2. Pyuria and irritable voiding. 3. Dehydration resolved. 4. Workup for adrenal insufficiency. Workup noted to be negative for such disease. 5. Chronic back pain. 6. Pyoderma gangrenosum. We will continue current medication regimen and follow the results of the cultures with speciation and evaluate the response to both urology and infectious disease for the chronic condition. The patient's pain will be controlled in office and we will allow for her to have more ambulation in a p.r.n. basis. The patient will have dietary restrictions to be maintained for the IC if that seems to be the diagnosis. Expected discharge within 1-2 days. Follow up per routine physicians on as needed basis.
[2016-12-07] MEDS: LOVENOX SUBQ SCH (17:20)
[2016-12-08] MEDS: PHENERGAN IV PRN (01:09)
[2016-12-08] MEDS: SODIUM CHLORIDE 0.9% INJ PRN (01:09)
[2016-12-08] MEDS: PRILOSEC PO SCH (06:19)
[2016-12-08] MEDS: NORCO-5 PO SCH ×3 (06:19→15:48)
--- NOTE | 2016-12-08 07:24 | PROGRESS NOTE ---
DATE: 12/08/2016 PRESENT ILLNESS: The patient has recurrent and/or chronic urinary tract infections. MEDICATIONS: Patient is on Septra now. She has not had any symptoms of a urinary tract infection such as dysuria or flank pain. PHYSICAL EXAMINATION: Vital Signs: Temperature is 98.4 degrees, pulse 85, respirations 22, blood pressure 106/54. Generally: This is an obese, but otherwise healthy-appearing , young female. She is in no acute distress. Lungs: Clear to auscultation. Cardiovascular: Regular heart rate. Abdomen and Flank: Soft and nontender. LAB AND X-RAY: Patient's CBC shows a white count of 5530, hemoglobin 12.4, and platelet count 234,000. Creatinine is 1.1. GFR is 58. Liver function studies are normal. IgG is 866. Blood and urine cultures are sterile thus far. ASSESSMENT AND PLAN: Based on the patient's urinalysis when she came in the hospital and also based on the patient's symptoms of dysuria and urinary frequency, I think she does have a urinary tract infection but it did not grow because the patient was on Septra. Since the Septra seems to be controlling her symptoms. I think the patient can go home today I would suggest continuing her on Septra for a total of 2 weeks of treatment, as it seems to be controlling her symptoms and it would appear based on the patient's urinalysis on admission that she did indeed have a urinary tract infection. Probably it did not grow because the patient was on an antibiotic already. I am not able to find exactly a comorbidity. I did order a postvoid residual urine. I do not see that result at this time but I will need to get that before the patient leaves. That would be the only comorbidity is if she does not fully empty her bladder. The patient did have a cystoscopy performed by Dr. Browne and apparently did not find any abnormality. As mentioned above, I am going to go ahead and order a bladder scan for postvoid residual urine to see if that could be the patient's problem. ADDENDUM: Post void residual urine was 172. MTDD
[2016-12-08] MEDS: NS 1,000 ML IV SCH (07:45)
--- NOTE | 2016-12-08 08:12 | PROGRESS NOTE ---
DATE: 12/08/2016 PRIMARY CARE PHYSICIAN: Dr. Onel Chiang. SUBJECTIVE: Overnight patient was noted to have increased frequency of urination with intermittent urinary irritation due to the procedural evaluation by Urology. 24 hour urine was stopped. The patient was restarted on the 24 hour urine approximately 8 p.m. or 1958 last night 12/07/2016. OBJECTIVE: Vital signs: Temperature 98.4 degrees, pulse 85, respirations 22, blood pressure 106/54, O2 saturation 96% on room air. I Os strictly measured show a 1244 balance, patient eating 100% of meals. Increased urinary number. The volume seems consistent with expectations. General: Well-developed to obese female, no acute distress. CV: Regular rate. No murmurs, gallops, or rubs. Abdomen is protuberant, but soft. Bowel sounds are present. No suprapubic tenderness. No CVA tenderness. Chest: Clear to auscultation anteriorly. Extremities: Lower extremities show 2+ edema at the bilateral lower extremities to approximately the [place]. LABS: Showed WBC of 5.53. IgG serum within normal limits at 866. Microbiology shows urine cultures x2. Blood cultures x 2 no growth. Evaluation report from Dr. Gonzalez. Retrograde pyelogram 12/07/2016 showed no evidence of destructive lesion or intraluminal filling. ASSESSMENT AND PLAN: This is a 31-year-old, obese female with: 1. Recurrent urinary tract infection on . 2. Pyuria and irritable voiding. 3. Dehydration resolved. 4. Workup for adrenal insufficiency negative. 5. Chronic low back pain on opioid therapy. 6. Pyoderma gangrenosum without evidence of current exacerbation. 7. Polyuria. No evidence of diabetes mellitus and Urology following regarding the IVP. 8. The patient be continued until 8 p.m. or 1999 tonight due to the need to collect 24 hour urine to complete the adrenal insufficiency workup. Otherwise patient has been doing well. Expect discharge 1st thing in a.m. with no issues or complaints. I will discuss this information with the patient and make sure that she understands the procedures and the results thereof.
[2016-12-08] MEDS: PROZAC PO SCH (08:32)
[2016-12-08] MEDS: ZANAFLEX PO SCH (08:35)
[2016-12-08] MEDS: COREG PO SCH (08:35)
[2016-12-08] MEDS: LYRICA PO SCH (08:35)
[2016-12-08] MEDS: SEPTRA DS PO SCH (08:36)
[2016-12-08 14:19] VITALS: BP 103/59
[2016-12-08] MEDS: LOVENOX SUBQ SCH (15:49)
--- NOTE | 2016-12-08 17:31 | DISCHARGE SUMMARY ---
ADMISSION DATE: 12/06/2016 DISCHARGE DATE: 12/08/2016 CHIEF COMPLAINT ON ADMISSION: Abdominal pain, recurrent UTI. HISTORY OF PRESENT ILLNESS: In brief, Ms. Edwards is a 31-year-old, obese, white female, with a history of pyoderma granulosa who presented multiple times to our office for UTI with fatigue. Nonresponsive to outpatient antibiotics. PROBLEM LIST AT DISCHARGE: 1. Culture negative UTI likely secondary to early treatment. 2. Hypovolemia with KATHLEEN. Resolved. 3. Near-syncope. 4. Persistent proteinuria. 5. Interstitial cystitis. 6. History of chronic opioid use. 7. Irritable bowel syndrome. 8. Fibromyalgia. CONSULTATIONS DURING THE CASE: The patient was consulted by Infectious Disease, Dr. Tommie Gonzalez, who agreed with the current antibiotics following cultures and stated approximately 2 weeks of Septra to be provided. Patient was consulted by Urology, Dr. Darren Browne, who agreed with the current plan to perform procedure and would be happy to follow up regarding the diagnosis of interstitial cystitis. IMAGING: Patient had an abdominopelvic CT, 12/05/2016, showing no stones, no hydronephrosis, mild splenomegaly, no bowel obstruction. She had a retrograde pyelogram 12/07/2016 that shows no evidence of obstructing lesion or fixed intraluminal defect. LABORATORY: Microbiology urine culture x2 with no growth. Blood cultures x2 no growth greater than 48 hours. WBC of 5.53 with an hemoglobin and hematocrit of 12 and 37 respectively. MCV of 76. Platelet count of 234,000. Chemistry showed sodium 137, potassium 4.3, creatinine down from 1.3 to 1.1, glucose 95-105, calcium 87, A1c 4.8, ALT and AST within normal limits. Cortisol response within normal limits. Initial draw of 6.2 with test 19 and 22. IgG 866 within normal limits. UA x2 showing trace WBCs +3 bacteria. VITAL SIGNS: Vital signs throughout the admission have been stable. One episode of pulse rate greater than 105. Otherwise within normal limits. HOSPITAL COURSE: Patient was admitted to the general medical floor and treated with IV fluid resuscitation alongside the use of Septra p.o. and IV pain medications. The patient underwent high-volume testing in both blood along with procedural testing as mentioned above with IVP. Patient's symptoms resolved but the underlying diagnosis is still unclear. The patient's UTIs show culture negativity but Infectious Disease states this might be due to the effectiveness of Bactrim. Prognosis is good. Patient will be discharged home in stable condition. MEDICATIONS: Please refer to medication reconciliation order form. Patient will be continued on Bactrim for approximately 2 weeks and then follow up in my office at that 2 week time.
[2016-12-08 17:35] LABS: UR PROTEIN 12.7 mg/dL
== END 2016-12-08 17:07 | disposition home or self-care (01) | DRG 690 ==
LOC: DIRADM 14:35 → 4N 17:52
PROVIDERS: ADMIT Family Medicine; ATTEND Family Medicine
PROC: 3E1K88X Irrigation of Genitourinary Tract using Irrigating Substance, Via Natural or Artificial Opening Endoscopic, Diagnostic (ICD-10-PCS; 2016-12-07)
PROC: BT141ZZ Fluoroscopy of Kidneys, Ureters and Bladder using Low Osmolar Contrast (ICD-10-PCS; principal; 2016-12-07 09:19)
DX: N30.10 Interstitial cystitis (chronic) without hematuria (principal); N17.9 Acute kidney failure, unspecified; L88 Pyoderma gangrenosum; E66.01 Morbid (severe) obesity due to excess calories; E86.0 Dehydration; R80.9 Proteinuria, unspecified; E28.2 Polycystic ovarian syndrome; M79.7 Fibromyalgia; F41.8 Other specified anxiety disorders; G47.00 Insomnia, unspecified; K21.9 Gastro-esophageal reflux disease without esophagitis; K58.9 Irritable bowel syndrome, unspecified; Z79.899 Other long term (current) drug therapy; Z83.3 Family history of diabetes mellitus; Z80.9 Family history of malignant neoplasm, unspecified; Z68.39 Body mass index [BMI] 39.0-39.9, adult
CPT/HCPCS: 74178; 74420; 80053; 81001; 81025; 81050; 82530; 82533; 82784; 83036; 83735; 84100; 84156; 84166; 84443; 85025; 87040; 87088; J0690; J0834; J1100; J1650; J2270; J2405; J2550; J7030; J7040; Q9966; Q9967